=== PATIENT | male | born 1970 | race Caucasian/White ===

== ENCOUNTER 2016-12-04 08:07 | Emergency (ER) | payer SELFPAY ==
[~2016-12-04] VITALS: Ht 175.3 cm; Wt 81.6 kg
[2016-12-04] MEDS ORDERED: MECLIZINE HCL 25 MG TAB PO ONE (08:15)
[2016-12-04 09:35] VITALS: BP 117/67
[2016-12-04 10:40] LABS: Basophils # (auto) 0.1 uL; Basophils % (auto) 1.1 % (0.0-2.0); Eosinophils # (auto) 0.1 uL; Eosinophils % (auto) 1.6 % (0.0-7.0); Hematocrit 41.8 % (41.0-53.0); Lymphocytes # (auto) 2.3 uL; Mean Corpuscular Hemoglobin 31.5 pg (28.0-32.0); Mean Corpuscular Hgb Conc. 33.5 g/dL (32.0-36.0); Mean Platelet Volume 7.8 fL (6.9-10.8); Monocytes # (auto) 0.6 uL; Monocytes % (auto) 7.1 % (0.0-12.0); Neutrophils # (auto) 5.3 uL; Neutrophils % (auto) 63.2 % (37.0-80.0); Nucleated Red Blood Cells % 0.1 %; Platelet Count (auto) 317 10^3/uL (140-450); Red Cell Distribution Width 13.8 % (11.8-14.3); White Blood Cell 8.4 10^3/uL (4.4-10.8)
[2016-12-04 10:45] LABS: Albumin 3.7 g/dL (3.4-5.0); BUN/Creatinine Ratio 11.9; Bilirubin, Total 0.3 mg/dL (0.2-1.0); Calcium 8.9 mg/dL (8.5-10.1); Potassium 3.3 mmol/L (3.5-5.1); Total Protein 7.6 g/dL (6.4-8.2)
== END 2016-12-04 11:07 | disposition home or self-care (01) ==
LOC: ER 08:07
DX: F12.10 Cannabis abuse, uncomplicated (principal); R10.9 Unspecified abdominal pain; R11.2 Nausea with vomiting, unspecified
CPT/HCPCS: 36415; 80053; 85025; 94761; 99284; J8597

== ENCOUNTER 2016-12-22 05:26 | Emergency (ER) | payer MEDICAID ==
[~2016-12-22] VITALS: Ht 182.9 cm; Wt 82.1 kg
[2016-12-22 05:49] VITALS: BP 155/102
== END 2016-12-22 06:33 | disposition left against medical advice (07) ==
LOC: ER 05:30
DX: R44.0 Auditory hallucinations (principal); Z53.21 Procedure and treatment not carried out due to patient leaving prior to being seen by health care provider

== ENCOUNTER 2017-02-19 02:39 | Emergency (ER) | payer MEDICAID ==
[~2017-02-19] VITALS: Ht 182.9 cm; Wt 72.6 kg
[2017-02-19 03:05] VITALS: BP 104/96
[2017-02-19 04:43] LABS: Urine WBC None Seen /hpf (0 - 3)
[2017-02-19 04:52] LABS: Urine Bacteria NONE SEEN /hpf (None Seen); Urine Blood Negative /uL (Negative); Urine Specific Gravity 1.002 (1.001-1.035)
[2017-02-19 05:38] LABS: Alcohol, Urine < 3.0 mg/dL (0-5); Amphetamine Screen, Urine NEGATIVE (NEGATIVE); Barbiturate Scree,Urine NEGATIVE (NEGATIVE); Benzodiazephine Screen, Urine NEGATIVE (NEGATIVE); Cannabinoid Screen, Urine NEGATIVE (NEGATIVE); Cocaine Screen, Urine NEGATIVE (NEGATIVE); Opiate Scree,Urine NEGATIVE (NEGATIVE); Phencyclidine Screen, Urine NEGATIVE (NEGATIVE)
== END 2017-02-19 03:34 | disposition left against medical advice (07) ==
LOC: ER 02:42
DX: R45.851 Suicidal ideations (principal); Z53.21 Procedure and treatment not carried out due to patient leaving prior to being seen by health care provider
CPT/HCPCS: 80307; 81001